=== PATIENT | male | born 1985 | race Caucasian/White ===

== ENCOUNTER 2018-11-29 00:02 | Emergency (ER) | payer SELFPAY ==
[~2018-11-29] VITALS: Ht 182.9 cm; Wt 68.0 kg
[2018-11-29] MEDS ORDERED: DIAZEPAM 5 MG/ML 2ML CPJ IV ONE (01:00)
[2018-11-29] MEDS ORDERED: SODIUM CHLORIDE 0.9% 1,000 ML IV ONE ×2 (01:00→09:30)
[2018-11-29 02:00] LABS: BASOPHILS % 2.3 % (0.0-2.0); EOSINOPHILS % 0.4 % (0.0-5.0); HEMATOCRIT. 46.7 % (42.0-52.0); HEMOGLOBIN. 16.1 g/dL (14.0-18.0); LYMPHOCYTES % 35.5 % (20.0-50.0); MEAN CORPUSCULAR HEMOGLOBIN 33.1 pg (28.0-32.0); MEAN CORPUSCULAR VOLUME 96.1 fL (80.0-94.0); MEAN PLATELET VOLUME 8.2 fl (7.4-10.4); MONOCYTES % 12.9 % (2.0-8.0); NEUTROPHILS % 48.9 % (40.0-76.0); PLATELET 107 x1000/uL (130-400); RED BLOOD CELL COUNT 4.86 mill/uL (4.7-6.1); RED CELL DISTRIBUTION WIDTH 15.7 % (11.6-14.6)
[2018-11-29 02:03] LABS: CHLORIDE 104 mEq/L (98-107)
[2018-11-29 02:18] LABS: ETHANOL BLOOD 481 mg/dL
[2018-11-29] MEDS ORDERED: FOLIC ACID 1 MG, MVI, ADULT NO.1 10 ML in DEXTROSE 5% WATER 1,000 ML IV NR ×3 (03:00)
[2018-11-29] MEDS ORDERED: THIAMINE HCL 100MG TABLET PO NR ×2 (03:00→10:00)
[2018-11-29] MEDS ORDERED: ONDANSETRON HCL 4MG/2ML INJ IV ONE (09:30)
[2018-11-29] MEDS ORDERED: CHLORDIAZEPOXIDE 25MG CAPSULE PO ONE (09:30)
[2018-11-29] MEDS ORDERED: LORAZEPAM 2MG/ML CPJ IV ONE (09:30)
[2018-11-29] MEDS ORDERED: FAMOTIDINE 20MG/2ML VIAL IV ONE (09:30)
[2018-11-29 10:48] VITALS: BP 121/75
== END 2018-11-29 11:08 | disposition home or self-care (01) ==
LOC: ER 00:43
DX: F10.229 Alcohol dependence with intoxication, unspecified (principal); Y90.8 Blood alcohol level of 240 mg/100 ml or more
CPT/HCPCS: 36415; 80053; 85025; 96365; 96366; 96375; 99283; G0482; J2060; J2405; J3360; J3490; J7030; J7070; Z7610